=== PATIENT | male | born 1970 | race Two or more races ===

== ENCOUNTER 2022-03-05 10:09 | Emergency (ER) | payer MEDICAID, OTHER ==
[~2022-03-05] VITALS: Ht 170.2 cm; Wt 72.6 kg
[2022-03-05 10:55] VITALS: BP 162/104
[2022-03-05] MEDS ORDERED: cefTRIAXone SOD 1,000 MG VL IM ONE (11:15)
[2022-03-05] MEDS ORDERED: cefTRIAXone SOD 1,000 MG VL ONE (11:27)
[2022-03-05] MEDS ORDERED: IBUPROFEN 800 MG TAB PO ONE ×2 (11:27→11:30)
[2022-03-05] MEDS ORDERED: CEPH500T PO (11:27)
[2022-03-05] MEDS ORDERED: IBUP800T27 PO (11:28)
== END 2022-03-05 12:55 | disposition home or self-care (01) ==
LOC: ER 10:09
DX: K04.7 Periapical abscess without sinus (principal); L73.9 Follicular disorder, unspecified; I10 Essential (primary) hypertension; F17.210 Nicotine dependence, cigarettes, uncomplicated
CPT/HCPCS: 96372; 99283; J0696